=== PATIENT | female | born 1935 | race Caucasian/White ===

== ENCOUNTER → 2020-10-25 | Outpatient (CLI) | payer MEDICARE, OTHER ==
--- NOTE | 2020-10-25 16:49 | REP ---
INDICATION: LEFT LEG PAIN. COMPARISON: None. TECHNIQUE: Plain films of the lumbar spine FINDINGS: There is a wedge compression at L1, there is a retrolisthesis of L2 over L3. The bones appear diffusely osteopenic. IMPRESSION: 1. Wedge compression fracture at L1, with approximately 50% loss of height anteriorly. 2. Grade 1 retrolisthesis of L2 over L3. 3. Diffuse osteopenia. 4. MRI suggested for detailed evaluation of the canal and the neural foramen. <Electronically signed by Jerson Abrams > 10/25/20 [id number]
== END ==
LOC: M WUC 14:33
PROVIDERS: ATTEND Physician Assistant Medical
DX: M79.662 Pain in left lower leg (principal); M85.88 Other specified disorders of bone density and structure, other site; S32.010A Wedge compression fracture of first lumbar vertebra, initial encounter for closed fracture; X58.XXXA Exposure to other specified factors, initial encounter; Y92.9 Unspecified place or not applicable

== ENCOUNTER → 2021-03-25 | Outpatient (REF) | payer MEDICARE | LOC: M LAB REF 16:36 | PROVIDERS: ATTEND Family Medicine | DX: I10 Essential (primary) hypertension (principal) ==

== ENCOUNTER → 2021-04-17 | Outpatient (REF) | payer MEDICARE | LOC: M LAB REF 13:01 | PROVIDERS: ATTEND Family Medicine | DX: I10 Essential (primary) hypertension (principal) ==